=== PATIENT | female | born 1990 | race Caucasian/White ===

== ENCOUNTER 2017-07-13 13:19 | Emergency (ER) | payer OTHER ==
[~2017-07-13] VITALS: Ht 160 cm; Wt 63.5 kg
== END 2017-07-13 17:44 | disposition home or self-care (01) ==
LOC: ER 13:19
DX: O26.892 Other specified pregnancy related conditions, second trimester (principal); S30.0XXA Contusion of lower back and pelvis, initial encounter; W10.8XXA Fall (on) (from) other stairs and steps, initial encounter; Y93.89 Activity, other specified; Y92.89 Other specified places as the place of occurrence of the external cause; Y99.8 Other external cause status; Z34.01 Encounter for supervision of normal first pregnancy, first trimester

== ENCOUNTER 2017-09-06 15:45 | Outpatient (CLI) | payer OTHER ==
[2017-09-06] MEDS ORDERED: PRENATAL TABLE1 EAC1 PO (16:29)
== END 2017-09-07 21:03 | disposition home or self-care (01) ==
LOC: OBS/DEL 15:45
DX: O99.89 Other specified diseases and conditions complicating pregnancy, childbirth and the puerperium (principal); N13.39 Other hydronephrosis; O60.02 Preterm labor without delivery, second trimester; Z34.02 Encounter for supervision of normal first pregnancy, second trimester

== ENCOUNTER 2018-01-13 07:00 | Inpatient (IN) | payer OTHER ==
[~2018-01-13] VITALS: Ht 162.6 cm; Wt 73.0 kg
[~2018-01-13 07:00] MED LIST: PRENATAL TABLE1 EAC1 PO
== END 2018-01-15 13:48 | disposition home or self-care (01) | DRG 775 ==
LOC: LDR 07:00 → OB/GYN 07:00
PROC: 10E0XZZ Delivery of Products of Conception, External Approach (ICD-10-PCS; principal; 2018-01-13)
PROC: 10907ZC Drainage of Amniotic Fluid, Therapeutic from Products of Conception, Via Natural or Artificial Opening (ICD-10-PCS; 2018-01-13)
PROC: 3E033VJ Introduction of Other Hormone into Peripheral Vein, Percutaneous Approach (ICD-10-PCS; 2018-01-13)
PROC: 4A1HXCZ Monitoring of Products of Conception, Cardiac Rate, External Approach (ICD-10-PCS; 2018-01-13)
DX: O48.0 Post-term pregnancy (principal); Z3A.40 40 weeks gestation of pregnancy; Z37.0 Single live birth

== ENCOUNTER 2021-03-03 15:30 | Inpatient (IN) | payer OTHER ==
[~2021-03-03] VITALS: Ht 160 cm; Wt 80.3 kg
== END 2021-03-15 17:28 | disposition home or self-care (01) | DRG 807 ==
LOC: OB/GYN 03-13 01:40 → LDR 03-13 01:40 → OB/GYN 03-13 04:48 → LDR 03-16 15:30
PROVIDERS: ADMIT Obstetrics & Gynecology; ATTEND Obstetrics & Gynecology
PROC: 10E0XZZ Delivery of Products of Conception, External Approach (ICD-10-PCS; principal; 2021-03-13)
PROC: 0HQ9XZZ Repair Perineum Skin, External Approach (ICD-10-PCS; 2021-03-13)
PROC: 4A1HXFZ Monitoring of Products of Conception, Cardiac Rhythm, External Approach (ICD-10-PCS; 2021-03-13)
DX: O70.0 First degree perineal laceration during delivery (principal); Z37.0 Single live birth; O99.02 Anemia complicating childbirth; D64.9 Anemia, unspecified; Z3A.39 39 weeks gestation of pregnancy